=== PATIENT | male | born 1960 | race Caucasian/White ===

== ENCOUNTER 2017-06-26 09:36 | Emergency (ER) | payer SELFPAY ==
[2017-06-26] MEDS ORDERED: TETANUS & DIPHTHERIA TOX,ADULT 0.5 ML VIAL ONE (10:09)
[2017-06-26] MEDS ORDERED: CLINDAMYCIN 600MG/D5W 600 MG/50 ML BAG IV ONE (10:36)
--- NOTE | 2017-06-26 11:23 | EDPHYS ---
Physician Documentation [facility] Name: Mao Ardon Age: 57 yrs Sex: Male : 1960 Arrival Date: 06/26/2017 Time: 09:40 Bed 18 Private MD: ED Physician Mariano Urbina HPI: 06/26 10:43 This 57 yrs old Male presents to ER via Ambulatory with complaints of Hand jr8 Injury. 10:43 The patient or guardian reports pain, a puncture wound, piece of wood , swelling, jr8 tenderness. The complaints affect the over MCP of 2nd digit. Context: The problem was sustained at work. Onset: The symptoms/episode began/occurred acutely. Modifying factors: The symptoms are alleviated by nothing, the symptoms are aggravated by movement. Associated signs and symptoms: Pertinent positives: erythema to puncture site . Severity of symptoms: At their worst the symptoms were moderate, in the emergency department the symptoms are unchanged. The patient has not experienced similar symptoms in the past. The patient has not recently seen a physician. Stated that while at work accidently had piece of wood puncture right hand on palmar aspect near MCP 2nd digit. Since then has had increased swelling and erythema noted along with drainage to puncture site . Historical: - Allergies: 10:05 No Known Allergies; ch - Home Meds: 10:05 None [Active]; ch - PMHx: 10:05 None; ch - PSHx: 10:05 None; ch - Immunization history:: Adult Immunizations up to date, Last tetanus immunization: unknown, Flu vaccine is not up to date. - Social history:: Smoking status: Patient uses tobacco products, smokes one pack cigarettes per day. Patient uses alcohol, weekly. ROS: 10:43 Eyes: Negative for injury, pain, redness, and discharge, ENT: Negative for injury, jr8 pain, and discharge, Neck: Negative for injury, pain, and swelling, Cardiovascular: Negative for chest pain, palpitations, and edema, Respiratory: Negative for shortness of breath, cough, wheezing, and pleuritic chest pain, Abdomen/GI: Negative for abdominal pain, nausea, vomiting, diarrhea, and constipation, Back: Negative for injury and pain, Neuro: Negative for headache, weakness, numbness, tingling, and seizure. 10:43 MS/extremity: Positive for erythema, pain, puncture, swelling, tenderness, warmth, of the right hand. Exam: 10:43 Cardiovascular: Regular rate and rhythm with a normal S1 and S2. No gallops, murmurs, jr8 or rubs. Normal PMI, no JVD. No pulse deficits. Respiratory: Lungs have equal breath sounds bilaterally, clear to auscultation and percussion. No rales, rhonchi or wheezes noted. No increased work of breathing, no retractions or nasal flaring. Skin: Warm, dry with normal turgor. Normal color with no rashes, no lesions, and no evidence of cellulitis. Neuro: Awake and alert, GCS 15, oriented to person, place, time, and situation. Cranial nerves II-XII grossly intact. Motor strength 5/5 in all extremities. Sensory grossly intact. Cerebellar exam normal. Normal gait. 10:43 Musculoskeletal/extremity: Extremities: grossly normal except: noted in the right hand: ROM: intact in all extremities, Circulation is intact in all extremities. Sensation intact. Patient able to make a fist and extend fully with right hand. No pain with flexion or extension of 2nd digit with resistance noted. Erythema over MCP joint with swelling noted. exudate expressed from puncture wound. Tenderness noted to site. No lymphangitis noted . Vital Signs: 10:45 BP 145 / 87; Pulse 81; Resp 16; Temp 98.5; Pulse Ox 99% on R/A; Pain 7/10; ch 11:35 BP 156 / 87; Pulse 78; Resp 15; Temp 98.2(O); Pulse Ox 99% on R/A; Pain 7/10; ch MDM: 09:56 Patient medically screened. jr8 11:20 Data reviewed: vital signs, nurses notes, lab test result(s), radiologic studies, plain jr8 films, and as a result, I will discharge patient. Data interpreted: Pulse oximetry: on room air is 100 %. Interpretation: normal. Counseling: I had a detailed discussion with the patient and/or guardian regarding: the historical points, exam findings, and any diagnostic results supporting the discharge/admit diagnosis, lab results, radiology results, the need for outpatient follow up, a hand specialist, to return to the emergency department if symptoms worsen or persist or if there are any questions or concerns that arise at home. ED course: Detailed discussion with patient about puncture wound and need for close f/u with hand surgeon. If he were to get worse to come straight back to ED for further evaluation and possible surgical intervention. That at this time there is no signs of tenosynovitis but that it could turn into it. Patient understood and will follow instructions . 06/26 10:29 Order name: Wound Culture jr8 06/26 10:07 Order name: XRAY Hand RIGHT 2 View; Complete Time: 11:31 ch Administered Medications: 10:15 Drug: Tetanus-Diphtheria Toxoid Adult 0.5 ml {Bark Tanner: [employer]. Exp: 10/19/2019. Lot #: [id number]. } Route: IM; Site: left deltoid; 11:06 Follow up: Response: No adverse reaction 10:40 Drug: Clindamycin 600 mg Route: IM; Site: left gluteus; 11:06 Follow up: Response: No adverse reaction Disposition: 12:41 Co-signature as Attending Physician, Mariano Urbina MD. rn Disposition: 06/26/17 11:23 Discharged to Home. Impression: Puncture wound without foreign body of hand, Cellulitis of right upper limb. - Condition is Stable. - Discharge Instructions: Puncture Wound, Cellulitis, Btet-id-Xlcn. - Prescriptions for Clindamycin HCl 300 mg Oral Capsule - take 1 capsule by ORAL route every 6 hours for 10 days; 40 capsule. Doxycycline Hyclate 100 mg Oral Tablet - take 1 tablet by ORAL route every 12 hours; 20 tablet. - Medication Reconciliation Form, Thank You Letter, Antibiotic Education, Prescription Opioid Use form. - Follow up: Edouard Smith MD; When: 1 - 2 days; Reason: Wound Recheck, Recheck today's complaints, Continuance of care, Re-evaluation by your physician. - Problem is new. - Symptoms have improved. Signatures: Dispatcher [employer] EDMS Belinda Christiansen RN RN ch Nieto, Roman, MD MD rn Roszak, Josh, PA PA jr8 Corrections: (The following items were deleted from the chart) 10:47 10:43 Stated that while at work accidently had piece of wood puncture right hand on jr8 palmar aspect near MCP 1st digit. Since then has had increased swelling and erythema noted along with drainage to puncture site . jr8
--- NOTE | 2017-06-26 11:23 | ER ---
Nurse's Notes [facility] Name: Mao Ardon Age: 57 yrs Sex: Male : 1960 Arrival Date: 06/26/2017 Time: 09:40 Bed 18 Private MD: Diagnosis: Puncture wound without foreign body of hand;Cellulitis of right upper limb Presentation: 06/26 10:03 Presenting complaint: Patient states: pt c/o pain to R hand since getting some wood in it three days ago while fishing. [place], concerned its infected now. Transition of care: patient was not received from another setting of care. Onset of symptoms was June 23, 2017. Care prior to arrival: None. 10:03 Method Of Arrival: Ambulatory 10:03 Acuity: TAM 4 Triage Assessment: 10:05 General: Appears in no apparent distress. comfortable, Behavior is calm, cooperative, ch appropriate for age. Pain: Complains of pain in palm of right hand and Right first web space Pain currently is 7 out of 10 on a pain scale. Pain began gradually, 2-3 days ago. Cardiovascular: No deficits noted. Respiratory: Airway is patent Respiratory effort is even, unlabored. GI: No signs and/or symptoms were reported involving the gastrointestinal system. Musculoskeletal: Circulation, motion, and sensation intact. Capillary refill < 3 seconds, in bilateral fingers. Swelling present in right hand. Injury Description: Foreign body is located right hand is a splinter. possible splinter R hand was sustained three days. pt has redness and swelling to R hand, oozing, and skin is warm to the touch. area of redness is about quarter sized. Historical: - Allergies: 10:05 No Known Allergies; ch - Home Meds: 10:05 None [Active]; ch - PMHx: 10:05 None; ch - PSHx: 10:05 None; ch - Immunization history:: Adult Immunizations up to date, Last tetanus immunization: unknown, Flu vaccine is not up to date. - Social history:: Smoking status: Patient uses tobacco products, smokes one pack cigarettes per day. Patient uses alcohol, weekly. Screenin:07 Abuse screen: Denies threats or abuse. Denies injuries from another. Nutritional screening: No deficits noted. Tuberculosis screening: No symptoms or risk factors identified. Fall Risk None identified. Assessment: 10:07 Reassessment: Patient appears in no apparent distress at this time. Patient and/or ch family updated on plan of care and expected duration. Pain level reassessed. Patient is alert, oriented x 3, equal unlabored respirations, skin warm/dry/pink. 11:17 Reassessment: Patient appears in no apparent distress at this time. No changes from previously documented assessment. Patient and/or family updated on plan of care and expected duration. Pain level reassessed. Patient is alert, oriented x 3, equal unlabored respirations, skin warm/dry/pink. Vital Signs: 10:45 BP 145 / 87; Pulse 81; Resp 16; Temp 98.5; Pulse Ox 99% on R/A; Pain 7/10; ch 11:35 BP 156 / 87; Pulse 78; Resp 15; Temp 98.2(O); Pulse Ox 99% on R/A; Pain 7/10; ch ED Course: 09:40 Patient arrived in ED. mr 09:56 Kirby Long PA is PHCP. jr8 09:56 Mariano Urbina MD is Attending Physician. jr8 10:01 Belinda Christiansen, CB is Primary Nurse. ch 10:04 Triage completed. ch 10:05 Arm band placed on left wrist. ch 10:07 No apparent distress. Resting quietly. ch 10:07 Patient has correct armband on for positive identification. Bed in low position. Call light in reach. Side rails up X 1. 10:07 No provider procedures requiring assistance completed. ch 10:34 X-ray completed. Portable x-ray completed in exam room. Patient tolerated procedure sw well. 10:36 XRAY Hand RIGHT 2 View In Process Unspecified. EDMS 11:22 Edouard Smith MD is Referral Physician. jr8 15:51 Patient did not have IV access during this emergency room visit. Administered Medications: 10:15 Drug: Tetanus-Diphtheria Toxoid Adult 0.5 ml {Telephone Station Installer: [employer]. Exp: 10/19/2019. Lot #: [id number]. } Route: IM; Site: left deltoid; 11:06 Follow up: Response: No adverse reaction ch 10:40 Drug: Clindamycin 600 mg Route: IM; Site: left gluteus; 11:06 Follow up: Response: No adverse reaction Outcome: 11:23 Discharge ordered by MD. rizo 11:35 Discharged to home ambulatory. 11:35 Condition: stable 11:35 Discharge instructions given to patient, Instructed on discharge instructions, follow up and referral plans. no drinking with medication, medication usage, Demonstrated understanding of instructions, follow-up care, medications, Prescriptions given X 3. 11:41 Patient left the ED. Addendum: 06/29/2017 09:26 Addendum: Culture Results: Positive wound culture. Bacteria is resistant to, has i w intermediate sensitivity, or is not tested against prescribed antibiotics. Report given to LYNDA for further evaluation and then to traffic observer for follow up with patient. Phone call Prescription called-in to pharmacy of choice. called in Bactrim DS 1 tab PO BID X 10 days #20, no refills to [facility]. Signatures: Dispatcher [employer] EDBelinda Jean, RN Marley Crawley ch, Irene, RN RN iw Roszak, Josh, PA PA jr8 Warren, Shannon sw
--- NOTE | 2017-06-26 11:25 | RAD REPORT ---
EXAM DESCRIPTION: RAD - Hand Right 2 View - 06/26/2017 10:36 am CLINICAL HISTORY: Pain and swelling to right hand, possible foreign body. COMPARISON: None. FINDINGS: Soft tissue swelling is seen along the radial aspect of the mid hand. No radiopaque foreig n body seen.
== END 2017-06-26 11:41 | disposition home or self-care (01) ==
LOC: ER 09:36
DX: S61.431A Puncture wound without foreign body of right hand, initial encounter (principal); L03.113 Cellulitis of right upper limb; W45.8XXA Other foreign body or object entering through skin, initial encounter; Y93.9 Activity, unspecified; Y92.9 Unspecified place or not applicable; Y99.0 Civilian activity done for income or pay
CPT/HCPCS: 87070; 87077; 87186; 87205; 90714; 96372; 99283

== ENCOUNTER 2018-01-21 06:45 | Emergency (ER) | payer SELFPAY ==
[2018-01-21] MEDS ORDERED: ONDANSETRON 4 MG/2 ML VIAL ONE (07:57)
[2018-01-21] MEDS ORDERED: MORPHINE 4 MG/ML SYR ONE (07:57)
[2018-01-21 08:02] LABS: Absolute Lymphocytes (CBC) 1.2 K/uL (0.7-4.9); Absolute Monocytes 0.5 K/uL (0.1-1.3); Absolute Neutrophil 5.6 K/uL (1.8-8.0); Basophils % 0.4 % (0-1.3); Eosinophils % 1.1 % (0-4.4); Hematocrit 51.9 % (39.6-49.0); MCH 31.8 pg (27.0-35.0); MCV 91.7 fL (80-100); MPV 9.6 fL (7.6-11.3); Monocytes % 6.7 % (3.3-12.3); RBC Red Blood Cell Count 5.66 M/uL (4.33-5.43)
[2018-01-21 08:23] LABS: BUN Blood Urea Nitrogen 13 mg/dL (7-18); Bicarbonate 26 mmol/L (21-32); Glucose Level 103 mg/dL (74-106); Potassium 4.2 mmol/L (3.5-5.1); Sodium Level 139 mmol/L (136-145)
--- NOTE | 2018-01-21 09:15 | RAD REPORT ---
EXAM DESCRIPTION: CT - Abdomen Pelvis W Contrast - 01/21/2018 8:49 am CLINICAL HISTORY: Abdominal pain/generalized abdominal pain COMPARISON: 2017 TECHNIQUE: Computed axial tomography of the abdomen pelvis was obtained. 100 cc Isovue-300 was admin istered intravenously. Oral contrast was not requested which limits evaluation of bowel. All CT scans are performed using dose optimization technique as appropriate and may include automated exposure control or mA/KV adjustment according to patient size. FINDINGS: Fatty infiltration liver The Spleen, pancreas, adrenal and kidneys appear unremarkable. Small left anterolateral abdominal wall lipoma There is no evidence of diverticulitis. Large ventral hernia contains nondilated small bowel within the mid and lower abdomen. Mild stranding within the mesentey is present. The neck measures 6 centimeters Small umbilical hernia contains loop of nondilated small bowel. Small inguinal hernias contain fat Gallbladder is distended Spondylolysis involves L5 5 IMPRESSION: Large ventral hernia contains nondilated small bowel within the mid and lower abdomen. M ild stranding within the mesentey likely indicates inflammation Small umbilical hernia containing loop of small bowel Gallbladder distention.
--- NOTE | 2018-01-21 10:32 | ER ---
Nurse's Notes [facility] Name: Mao Ardon Age: 58 yrs Sex: Male : 1960 Arrival Date: 01/21/2018 Time: 06:46 Bed 19 Private MD: Diagnosis: Ventral hernia Presentation: 01/21 06:48 Presenting complaint: EMS states: Pt has had a hernia for 2 years. was having severe jb4 abdominal pain on the scene. Transition of care: patient was not received from another setting of care. Onset of symptoms was January 21, 2018. Risk Assessment: Do you want to hurt yourself or someone else? Patient reports no desire to harm self or others. Initial Sepsis Screen: Does the patient meet any 2 criteria? No. Patient's initial sepsis screen is negative. Does the patient have a suspected source of infection? No. Patient's initial sepsis screen is negative. Care prior to arrival: None. 06:48 Method Of Arrival: EMS: [facility] jb4 06:48 Acuity: TAM 3 jb4 Triage Assessment: 06:53 General: Appears in no apparent distress. uncomfortable, Behavior is calm, cooperative, jb4 appropriate for age. Pain: Complains of pain in abdomen Pain does not radiate. Pain currently is 5 out of 10 on a pain scale. at worst was 10 out of 10 on a pain scale. EENT: No signs and/or symptoms were reported regarding the EENT system. Neuro: Level of Consciousness is awake, alert, obeys commands, Oriented to person, place, time, situation. Cardiovascular: Patient's skin is warm and dry. Respiratory: Airway is patent Respiratory effort is even, unlabored, Respiratory pattern is regular, symmetrical. GI: Abdomen is non-distended, obese, hernia noted to right abdomen. : No signs and/or symptoms were reported regarding the genitourinary system. Derm: Skin is intact, Skin is pink, warm \T\ dry. Musculoskeletal: Circulation, motion, and sensation intact. Historical: - Allergies: 06:53 No Known Allergies; jb4 - Home Meds: 06:53 None [Active]; jb4 - PMHx: 06:53 Hernia; jb4 - PSHx: 06:53 foot surgery; left thumb surgery; jb4 - Immunization history:: Adult Immunizations up to date, Flu vaccine is not up to date. - Social history:: Smoking status: Patient uses tobacco products, smokes one pack cigarettes per day. Patient uses alcohol, claims drinking about a 6 pack/day. - Ebola Screening: : No symptoms or risks identified at this time. Screenin:56 Abuse screen: Denies threats or abuse. Nutritional screening: No deficits noted. jb4 Tuberculosis screening: No symptoms or risk factors identified. Fall Risk None identified. Assessment: 06:56 General: see triage assessment.. jb4 07:30 Reassessment: Patient appears in no apparent distress at this time. Patient and/or jl7 family updated on plan of care and expected duration. Pain level reassessed. Patient is alert, oriented x 3, equal unlabored respirations, skin warm/dry/pink. Pain level rated 4/10 Patient states symptoms have improved. 09:13 Reassessment: Patient appears in no apparent distress at this time. No changes from [facility] previously documented assessment. Patient and/or family updated on plan of care and expected duration. Pain level reassessed. Patient is alert, oriented x 3, equal unlabored respirations, skin warm/dry/pink. 10:03 Reassessment: Patient appears in no apparent distress at this time. Patient and/or jl7 family updated on plan of care and expected duration. Pain level reassessed. Patient is alert, oriented x 3, equal unlabored respirations, skin warm/dry/pink. Vital Signs: 06:53 BP 150 / 100; Pulse 57; Resp 20; Temp 97.9; Pulse Ox 97% on R/A; Weight 117.93 kg (R); jb4 Height 6 ft. 0 in. (182.88 cm) (R); Pain 5/10; 08:09 BP 142 / 84; Pulse 61; Resp 16 S; Pulse Ox 96% on R/A; Pain 4/10; jl7 09:12 BP 136 / 77; Pulse 57; Resp 16 S; Pulse Ox 96% on R/A; jl7 10:03 BP 136 / 77; Pulse 59; Resp 16 S; Pulse Ox 94% on R/A; jl7 06:53 Body Mass Index 35.26 (117.93 kg, 182.88 cm) 4 ED Course: 06:46 Patient arrived in ED. al2 06:46 Laney Dunham FNP-C is PHCP. kb 06:46 Eliazar Franco MD is Attending Physician. kb 06:48 Rodney Akers, RN is Primary Nurse. jb4 06:50 Triage completed. jb4 06:53 Arm band placed on right wrist. jb4 06:56 Patient has correct armband on for positive identification. Bed in low position. Call jb4 light in reach. Side rails up X 1. Pulse ox on. NIBP on. 07:40 Inserted saline lock: 20 gauge in right forearm, using aseptic technique. Blood bp collected. 08:47 CT completed. Patient tolerated procedure well. Patient moved to OR via wheelchair. sj Patient moved back from OR. 10:15 Harpreet Szymanski MD is Referral Physician. kb 10:21 No provider procedures requiring assistance completed. IV discontinued, intact, jl7 bleeding controlled, No redness/swelling at site. Pressure dressing applied. Administered Medications: 07:06 Not Given (Other Intervention Used): [place] 10 mg-325 mg 1 tabs PO once kb 07:50 Drug: Zofran 4 mg Route: IVP; Site: right antecubital; jl7 08:09 Follow up: Response: No adverse reaction jl7 07:52 Drug: morphine 4 mg Route: IVP; Site: right antecubital; jl7 08:09 Follow up: Response: Pain is decreased jl7 Outcome: 10:15 Discharge ordered by . kb 10:21 Discharged to home ambulatory. jl7 10:21 Condition: stable 10:21 Discharge instructions given to patient, family, Instructed on discharge instructions, follow up and referral plans. Demonstrated understanding of instructions, follow-up care. 10:22 Patient left the ED. jl7 Signatures: Laney Dunahm, STRAW HAT BRIM CUTTER OPERATOR-C STRAW HAT BRIM CUTTER OPERATOR-[place]aven Guthrie James, RN RN jb4 David Rousseau RN RN jl7 Arvind Carney, RN RN Christy Miller
--- NOTE | 2018-01-21 10:32 | EDPHYS ---
Physician Documentation [facility] Name: Mao Ardon Age: 58 yrs Sex: Male : 1960 Arrival Date: 01/21/2018 Time: 06:46 Bed 19 Private MD: ED Physician Eliazar Franco HPI: 01/21 06:47 This 58 yrs old Male presents to ER via Unassigned with complaints of kb abdominal pain. 06:47 The patient presents with abdominal pain in the periumbilical area. Onset: The kb symptoms/episode began/occurred at 04:00. The symptoms do not radiate. Associated signs and symptoms: Pertinent positives: nausea and vomiting, hernia. The symptoms are described as constant, sharp. Modifying factors: The symptoms are alleviated by nothing, the symptoms are aggravated by movement, pressure. Severity of pain: At its worst the pain was moderate in the emergency department the pain has improved. The patient has experienced similar episodes in the past. The patient has not recently seen a physician. Pt reports he has had a large hernia for 2 years, normally has to wear a couple of abd binders to "keep it in." States he woke up with severe pain at 0400 and the hernia was out again and hard. 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 . Historical: - Allergies: 06:53 No Known Allergies; jb4 - Home Meds: 06:53 None [Active]; jb4 - PMHx: 06:53 Hernia; jb4 - PSHx: 06:53 foot surgery; left thumb surgery; jb4 - Immunization history:: Adult Immunizations up to date, Flu vaccine is not up to date. - Social history:: Smoking status: Patient uses tobacco products, smokes one pack cigarettes per day. Patient uses alcohol, claims drinking about a 6 pack/day. - Ebola Screening: : No symptoms or risks identified at this time. ROS: 07:06 Constitutional: Negative for fever, chills, and weight loss, Cardiovascular: Negative kb for chest pain, palpitations, and edema, Respiratory: Negative for shortness of breath, cough, wheezing, and pleuritic chest pain, Back: Negative for injury and pain, : Negative for injury, bleeding, discharge, and swelling, MS/Extremity: Negative for injury and deformity, Skin: Negative for injury, rash, and discoloration, Neuro: Negative for headache, weakness, numbness, tingling, and seizure. 07:06 Abdomen/GI: Positive for abdominal pain, nausea and vomiting. Exam: 07:06 Constitutional: This is a well developed, well nourished patient who is awake, alert, kb and in no acute distress. Head/Face: Normocephalic, atraumatic. Chest/axilla: Normal chest wall appearance and motion. Nontender with no deformity. No lesions are appreciated. Cardiovascular: Regular rate and rhythm with a normal S1 and S2. No gallops, murmurs, or rubs. Normal PMI, no JVD. No pulse deficits. Respiratory: Lungs have equal breath sounds bilaterally, clear to auscultation and percussion. No rales, rhonchi or wheezes noted. No increased work of breathing, no retractions or nasal flaring. Skin: Warm, dry with normal turgor. Normal color with no rashes, no lesions, and no evidence of cellulitis. MS/ Extremity: Pulses equal, no cyanosis. Neurovascular intact. Full, normal range of motion. Neuro: Awake and alert, GCS 15, oriented to person, place, time, and situation. Cranial nerves II-XII grossly intact. Motor strength 5/5 in all extremities. Sensory grossly intact. Cerebellar exam normal. Normal gait. 07:06 Abdomen/GI: Inspection: large hernia noted , Bowel sounds: normal, in all quadrants, Palpation: abdomen is soft and non-tender, in all quadrants, Hernia: noted in the paraumbilical area, incarceration, is not appreciated, tenderness, that is moderate. Vital Signs: 06:53 BP 150 / 100; Pulse 57; Resp 20; Temp 97.9; Pulse Ox 97% on R/A; Weight 117.93 kg (R); jb4 Height 6 ft. 0 in. (182.88 cm) (R); Pain 5/10; 08:09 BP 142 / 84; Pulse 61; Resp 16 S; Pulse Ox 96% on R/A; Pain 4/10; jl7 09:12 BP 136 / 77; Pulse 57; Resp 16 S; Pulse Ox 96% on R/A; jl7 10:03 BP 136 / 77; Pulse 59; Resp 16 S; Pulse Ox 94% on R/A; jl7 06:53 Body Mass Index 35.26 (117.93 kg, 182.88 cm) jb4 MDM: 06:50 Patient medically screened. [facility] 06:55 Data reviewed: vital signs, nurses notes. kb 06:55 ED course: hernia reduced with constant pressure, abd binder placed. Pt reports pain is kb improved, now just sore. 07:08 Data interpreted: Pulse oximetry: on room air is 97 %. Interpretation: normal. kb 10:08 Physician consultation: Harpreet Szymanski MD was called at 10:08, message left. kb 10:14 Counseling: I had a detailed discussion with the patient and/or guardian regarding: the kb historical points, exam findings, and any diagnostic results supporting the discharge/admit diagnosis, lab results, radiology results, the need for outpatient follow up, a general surgeon, to return to the emergency department if symptoms worsen or persist or if there are any questions or concerns that arise at home. Physician consultation: Harpreet Szymanski MD was contacted at 10:14, regarding consult, patient's condition, and will see patient in office. 01/21 07:06 Order name: Basic Metabolic Panel 01/21 07:06 Order name: CBC with Diff 01/21 07:42 Order name: CT Abd/Pelvis - W/Contrast 01/21 08:03 Order name: CBC with Automated Diff; Complete Time: 08:17 EDMS 01/21 08:23 Order name: Basic Metabolic Panel; Complete Time: 08:24 EDMS 01/21 07:06 Order name: IV Saline Lock; Complete Time: 07:40 kb 01/21 07:06 Order name: Labs collected and sent; Complete Time: 07:40 kb Administered Medications: 07:06 Not Given (Other Intervention Used): Bunker 10 mg-325 mg 1 tabs PO once kb 07:50 Drug: Zofran 4 mg Route: IVP; Site: right antecubital; jl7 08:09 Follow up: Response: No adverse reaction jl7 07:52 Drug: morphine 4 mg Route: IVP; Site: right antecubital; jl7 08:09 Follow up: Response: Pain is decreased jl7 Disposition: 11:28 Co-signature as Attending Physician, Eliazar Franco MD I agree with the assessment and [facility] plan of care. Disposition: 01/21/18 10:15 Discharged to Home. Impression: Ventral hernia. - Condition is Stable. - Discharge Instructions: Hernia, Adult, [id number], Ventral Hernia. - Medication Reconciliation Form, Thank You Letter, Antibiotic Education, Prescription Opioid Use form. - Follow up: Emergency Department; When: As needed; Reason: Worsening of condition. Follow up: Harpreet Szymanski MD; When: Today; Reason: Recheck today's complaints. Signatures: Dispatcher [employer] EDMS RolyLaney, FULL STACK DEVELOPER-C FULL STACK DEVELOPER-Ckb Eliazar Franco MD MD cha Bryson, James, RN RN jb4 David Rousseau RN RN jl7 Corrections: (The following items were deleted from the chart) 10:22 10:15 01/21/2018 10:15 Discharged to Home. Impression: Ventral hernia. Condition is jl7 Stable. Forms are Medication Reconciliation Form, Thank You Letter, Antibiotic Education, Prescription Opioid Use. Follow up: Emergency Department; When: As needed; Reason: Worsening of condition. Follow up: Harpreet Szymanski; When: Today; Reason: Recheck today's complaints. kb
== END 2018-01-21 10:22 | disposition home or self-care (01) ==
LOC: ER 06:45
DX: K43.9 Ventral hernia without obstruction or gangrene (principal); F17.210 Nicotine dependence, cigarettes, uncomplicated
CPT/HCPCS: 36415; 74177; 80048; 85025; 96374; 96375; 99284; J2405; Q9967

== ENCOUNTER 2018-10-15 14:43 | Emergency (ER) | payer SELFPAY ==
--- OUTSIDE RECORDS SUMMARY | 2018-10-15 14:47 | XMS REPORT ---
:1960 Demographics Address [address] [place] [address] Preferred Language Unknown Marital Status Unknown Jew Affiliation Unknown Race Unknown Additional Race(s) Unavailable Ethnic Group Unknown Author Organization [facility] Address [address] [place] [address] Dr. Prince [address] [place] [id number] Care Team Providers Name Role Phone Unavailable Unavailable Unavailable Problems This patient has no known problems. Allergies, Adverse Reactions, Alerts This patient has no known allergies or adverse reactions. Medications This patient has no known medications.
[2018-10-15] MEDS ORDERED: LIDOCAINE 1% MPF 5 ML VIAL ONE (15:30)
--- NOTE | 2018-10-15 15:35 | EDPHYS ---
Physician Documentation [facility] Name: Mao Ardon Age: 58 yrs Sex: Male : 1960 Arrival Date: 10/15/2018 Time: 14:44 Bed 20 Private MD: None, None ED Physician Mariano Urbina HPI: 10/15 15:15 This 58 yrs old Male presents to ER via Ambulatory with complaints of Finger kb Injury, Laceration To Hand. 15:15 The patient has a laceration related to: doing carpentry, from a power saw, occurred at home, and there are no complicating factors. The injury was accidental. The laceration(s) is(are) located on the dorsal aspect of middle phalanx of right index finger. Onset: The symptoms/episode began/occurred just prior to arrival. Associated signs and symptoms: The patient has no apparent associated signs or symptoms. The patient has not experienced similar symptoms in the past. The patient has not recently seen a physician. Pt reports he cut his finger with a saw while cutting cabinet trim approx 20 min ago. Full ROM of finger at every joint. Cap refill less than 2 seconds. Bleeding controlled. . Historical: - Allergies: 14:52 Codeine; hj - PMHx: 14:52 Hernia; hj - PSHx: 14:52 foot surgery; left thumb surgery; hj - Immunization history:: Adult Immunizations unknown, Last tetanus immunization: up to date. - Social history:: Smoking status: unknown. - Ebola Screening: : No symptoms or risks identified at this time. ROS: 15:11 Constitutional: Negative for fever, chills, and weight loss, ENT: Negative for injury, kb pain, and discharge, Neck: Negative for injury, pain, and swelling, Cardiovascular: Negative for chest pain, palpitations, and edema, Respiratory: Negative for shortness of breath, cough, wheezing, and pleuritic chest pain, Abdomen/GI: Negative for abdominal pain, nausea, vomiting, diarrhea, and constipation, Back: Negative for injury and pain, MS/Extremity: Negative for injury and deformity, Neuro: Negative for headache, weakness, numbness, tingling, and seizure. 15:11 Skin: Positive for laceration(s), of the dorsal aspect of middle phalanx of right index finger. Exam: 15:11 Constitutional: This is a well developed, well nourished patient who is awake, alert, kb and in no acute distress. Head/Face: Normocephalic, atraumatic. Chest/axilla: Normal chest wall appearance and motion. Nontender with no deformity. No lesions are appreciated. Cardiovascular: Regular rate and rhythm with a normal S1 and S2. No gallops, murmurs, or rubs. Normal PMI, no JVD. No pulse deficits. Respiratory: Lungs have equal breath sounds bilaterally, clear to auscultation and percussion. No rales, rhonchi or wheezes noted. No increased work of breathing, no retractions or nasal flaring. Abdomen/GI: Soft, non-tender, with normal bowel sounds. No distension or tympany. No guarding or rebound. No evidence of tenderness throughout. MS/ Extremity: Pulses equal, no cyanosis. Neurovascular intact. Full, normal range of motion. Neuro: Awake and alert, GCS 15, oriented to person, place, time, and situation. Cranial nerves II-XII grossly intact. Motor strength 5/5 in all extremities. Sensory grossly intact. Cerebellar exam normal. Normal gait. 15:11 Skin: injury, laceration(s), the wound is approximately 2.5 cm(s), of the dorsal aspect of middle phalanx of right index finger, that can be described as clean, no foreign body, linear, without bleeding. Vital Signs: 14:52 BP 136 / 83; Pulse 82; Resp 18; Temp 98.2(TE); Pulse Ox 95% on R/A; Weight 117.93 kg; hj Height 6 ft. 1 in. (185.42 cm); 14:52 Body Mass Index 34.30 (117.93 kg, 185.42 cm) hj Laceration: 15:33 Wound Repair of 2.5cm ( 1.0in ) subcutaneous laceration to dorsal aspect of middle kb phalanx of right index finger. Linear shaped.. Distal neuro/vascular/tendon intact. Anesthesia: Wound infiltrated with 2 mls of 1% lidocaine. Wound prep: Extensive cleansing with betadine by me, Wound irrigation with saline by wi. Skin closed with 5 4-0 Prolene using interrupted sutures and sterile technique. Dressed with Neosporin, tube gauze. Patient tolerated well. MDM: 14:58 Patient medically screened. kb 15:12 Data reviewed: vital signs, nurses notes. Data interpreted: Pulse oximetry: on room air kb is 95 %. Interpretation: normal. 15:33 Counseling: I had a detailed discussion with the patient and/or guardian regarding: the kb historical points, exam findings, and any diagnostic results supporting the discharge/admit diagnosis, the need for outpatient follow up, a family practitioner, to return to the emergency department if symptoms worsen or persist or if there are any questions or concerns that arise at home. ED course: Pt does not want x-ray to rule out fracture. States "Nah, that's ok. I would feel it if it was broke. I don't think it is.". 15:35 Refusal of service: The patient/guardian displays adequate decision making capability kb and despite a detailed discussion of alternatives, benefits, risks, and consequences refuses: all X-rays. 10/15 15:03 Order name: Prolene, Sutures; Complete Time: 15:29 kb 10/15 15:03 Order name: Dressing - Wound; Complete Time: 15:29 kb 10/15 15:03 Order name: Gloves, Sterile; Complete Time: 15:29 kb 10/15 15:03 Order name: Setup Suture Tray; Complete Time: 15:29 kb Administered Medications: 15:52 Drug: Lidocaine (1 %) 1 vials Volume: 5 ml; Route: Infiltration; ph 15:52 Follow up: Response: No adverse reaction ph Disposition: 18:21 Co-signature as Attending Physician, Mariano Urbina MD. rn Disposition: 10/15/18 15:34 Discharged to Home. Impression: Laceration without foreign body of right index finger without damage to nail. - Condition is Stable. - Discharge Instructions: Laceration Care, Adult, [id number]. - Medication Reconciliation Form, Thank You Letter, Antibiotic Education, Prescription Opioid Use form. - Follow up: Emergency Department; When: As needed; Reason: Worsening of condition. Follow up: Private Physician; When: 2 - 3 days; Reason: Recheck today's complaints, Continuance of care, Re-evaluation by your physician. Signatures: Laney Dunham, ORE MINER BLASTING-C ORE MINER BLASTING-Ckb Urbina, Mariano, MD MD rn Espinal, Shona, RN RN ph Calvin, Harpreet, RN RN hj Corrections: (The following items were deleted from the chart) 15:35 15:33 ED course: Pt does not want x-ray to rule out fracture. . kb kb 15:53 15:34 10/15/2018 15:34 Discharged to Home. Impression: Laceration without foreign body ph of right index finger without damage to nail. Condition is Stable. Forms are Medication Reconciliation Form, Thank You Letter, Antibiotic Education, Prescription Opioid Use. Follow up: Emergency Department; When: As needed; Reason: Worsening of condition. Follow up: Private Physician; When: 2 - 3 days; Reason: Recheck today's complaints, Continuance of care, Re-evaluation by your physician. kb
--- NOTE | 2018-10-15 15:35 | ER ---
Nurse's Notes [facility] Name: Mao Ardon Age: 58 yrs Sex: Male : 1960 Arrival Date: 10/15/2018 Time: 14:44 Bed 20 Private MD: None, None Diagnosis: Laceration without foreign body of right index finger without damage to nail Presentation: 10/15 14:50 Presenting complaint: Patient states: i cut and trimmed for cabinets and accidentally hj cut my R index finger with a saw and it happened 30 mins ago;. Transition of care: patient was not received from another setting of care. Onset of symptoms was October 15, 2018. Risk Assessment: Do you want to hurt yourself or someone else? Patient reports no desire to harm self or others. Initial Sepsis Screen: Does the patient meet any 2 criteria? No. Patient's initial sepsis screen is negative. Does the patient have a suspected source of infection? No. Patient's initial sepsis screen is negative. Care prior to arrival: None. 14:50 Method Of Arrival: Ambulatory 14:50 Acuity: TAM 4 hj Historical: - Allergies: 14:52 Codeine; hj - PMHx: 14:52 Hernia; hj - PSHx: 14:52 foot surgery; left thumb surgery; hj - Immunization history:: Adult Immunizations unknown, Last tetanus immunization: up to date. - Social history:: Smoking status: unknown. - Ebola Screening: : No symptoms or risks identified at this time. Screenin:28 Abuse screen: Denies threats or abuse. Denies injuries from another. Nutritional ph screening: No deficits noted. Tuberculosis screening: No symptoms or risk factors identified. Fall Risk None identified. Assessment: 15:27 General: Appears in no apparent distress. comfortable, Behavior is calm, cooperative, ph appropriate for age. Pain: Complains of pain in dorsal aspect of middle phalanx of right index finger. Neuro: Level of Consciousness is awake, alert, obeys commands, Oriented to person, place, time, situation. Cardiovascular: Capillary refill < 3 seconds in bilateral fingers Patient's skin is warm and dry. Respiratory: Airway is patent Respiratory effort is even, unlabored, Respiratory pattern is regular, symmetrical. Derm: Skin is healthy with good turgor, Skin is pink, warm \T\ dry. Musculoskeletal: Circulation, motion, and sensation intact. Range of motion: intact in all extremities. Injury Description: Laceration sustained to dorsal aspect of middle phalanx of right index finger is clean, superficial, 0.5 to 2.5 cm long, not bleeding, was sustained 30-60 minutes ago. 15:52 Reassessment: Patient appears in no apparent distress at this time. Patient and/or ph family updated on plan of care and expected duration. Pain level reassessed. Patient is alert, oriented x 3, equal unlabored respirations, skin warm/dry/pink. Pt instructed to have sutures removed in 10-14 days and d/c home. Vital Signs: 14:52 BP 136 / 83; Pulse 82; Resp 18; Temp 98.2(TE); Pulse Ox 95% on R/A; Weight 117.93 kg; hj Height 6 ft. 1 in. (185.42 cm); 14:52 Body Mass Index 34.30 (117.93 kg, 185.42 cm) hj ED Course: 14:44 Patient arrived in ED. dp 14:44 None, None is Private Physician. dp 14:52 Triage completed. hj 14:52 Arm band placed on left wrist. hj 14:54 Shona Espinal RN is Primary Nurse. ph 14:57 Laney Dunham FNP-C is [facility]. kb 14:57 Mariano Urbina MD is Attending Physician. kb 15:28 Assist provider with laceration repair on dorsal aspect of middle phalanx of right ph index finger that was 2.5 cm. or less using sutures. Set up tray. Performed by Laney FALK Patient tolerated well. Patient did not have IV access during this emergency room visit. 15:29 Patient has correct armband on for positive identification. Call light in reach. Side ph rails up X 1. Administered Medications: 15:52 Drug: Lidocaine (1 %) 1 vials Volume: 5 ml; Route: Infiltration; ph 15:52 Follow up: Response: No adverse reaction ph Outcome: 15:34 Discharge ordered by . kb 15:53 Discharged to home ambulatory. ph 15:53 Condition: good 15:53 Discharge instructions given to patient, Instructed on discharge instructions, follow up and referral plans. wound care, Demonstrated understanding of instructions, follow-up care, wound care. 15:53 Patient left the ED. ph Signatures: Laney Dunham, Shona Meza, RN RN ph Harpreet Simpson, RN RN hj Kevin Shultz
== END 2018-10-15 15:53 | disposition home or self-care (01) ==
LOC: ER 14:43
PROC: 0JQJ0ZZ Repair Right Hand Subcutaneous Tissue and Fascia, Open Approach (ICD-10-PCS; principal; 2018-10-15)
DX: S61.210A Laceration without foreign body of right index finger without damage to nail, initial encounter (principal); W29.8XXA Contact with other powered hand tools and household machinery, initial encounter; Y93.89 Activity, other specified; Z88.5 Allergy status to narcotic agent
CPT/HCPCS: 99283

== ENCOUNTER 2020-06-12 18:22 | Emergency (ER) | payer OTHER, SELFPAY ==
--- OUTSIDE RECORDS SUMMARY | 2020-06-12 18:24 | XMS REPORT | Continuity of Care Document ---
:1960 Author Organization [facility] t Address [address] [place] [address] Care Team Providers Name Role Phone Mike LOWRY Attending Clinician Doctor Unassigned, Name Attending Clinician Unavailable Problems This patient has no known problems. Allergies, Adverse Reactions, Alerts This patient has no known allergies or adverse reactions. Medications This patient has no known medications. Procedures This patient has no known procedures. Encounters Start End Encounter Admission Attending Care Care Encounter Source Date/Time Date/Time Type Type Clinicians Facility Department ID 2019-05-07 2019-05-07 Emergency Mike [facility] [id number] 06:35:54 08:11:00 Landon Calhoun [id number] [place] [id number] [place] [id number] 2019-05-07 2019-05-07 Orders Doctor [facility] [id number] 00:00:00 00:00:00 Only UnassALEX diaz [id number] [place] [facility] [id number] Results This patient has no known results.
[2020-06-12] MEDS ORDERED: MORPHINE 4 MG/ML SYR ONE ×2 (19:07→21:37)
[2020-06-12] MEDS ORDERED: BUPIVACAINE 0.5% PF 10 ML VIAL ONE (19:07)
[2020-06-12] MEDS ORDERED: ONDANSETRON 4 MG/2 ML VIAL ONE (19:07)
[2020-06-12] MEDS ORDERED: LIDOCAINE 1% 20 ML MDV ONE (19:08)
[2020-06-12] MEDS ORDERED: PIPER/TAZO/NS 3.375gm 3.375 GM/100 ML BAG ONE (19:08)
--- NOTE | 2020-06-12 20:03 | RAD REPORT ---
EXAM DESCRIPTION: RAD -Hand Left 3 View - 06/12/2020 7:30 pm CLINICAL HISTORY: Left hand pain status dog bite FINDINGS: No fracture or dislocation is seen. A radiopaque foreign body is not seen
--- NOTE | 2020-06-12 20:14 | ER ---
Nurse's Notes [facility] Name: Mao Ardon Age: 60 yrs Sex: Male : 1960 Arrival Date: 06/12/2020 Time: 18:22 Bed 5 Private MD: Diagnosis: Nondisplaced fracture of proximal phalanx of left thumb-open;Bitten by dog;Laceration without foreign body of right thumb without damage to nail-from dog bite Presentation: 06/12 18:32 Chief complaint: Patient states: Broke up a dog fight between two large dogs that live ll1 at his house right now, happened 10 min HORSESHOER. Deep laceration to both sides of L hand (thumb area). 2 puncture wounds to R hand fingers. Abrasions R FA. Bleeding controlled. Coronavirus screen: Client denies travel out of the [place] in the last 14 days. At this time, the client does not indicate any symptoms associated with coronavirus-19. Ebola Screen: Patient denies travel to an Ebola-affected area in the 21 days before illness onset. Initial Sepsis Screen: Does the patient meet any 2 criteria? HR > 90 bpm. No. Patient's initial sepsis screen is negative. Does the patient have a suspected source of infection? Yes: Skin breakdown/wound. Risk Assessment: Do you want to hurt yourself or someone else? Patient reports no desire to harm self or others. Onset of symptoms was June 12, 2020. 18:32 Method Of Arrival: Ambulatory ll1 18:32 Acuity: TAM 3 ll1 Triage Assessment: 19:20 Bite description: bite sustained to dorsal aspect of proximal phalanx of left thumb, lp1 palm of left hand and Left first web space is full thickness, from animal, by a dog, animal information: vaccination(s) is unknown. Historical: - Allergies: 18:32 Codeine; ll1 - PMHx: 18:32 Hernia; ll1 - PSHx: 18:32 foot surgery; left thumb surgery; Hernia repair; ll1 - Immunization history:: Last tetanus immunization: up to date Flu vaccine is not up to date. - Social history:: Smoking status: Patient reports the use of cigarette tobacco products, smokes one pack cigarettes per day. Screenin:53 Abuse screen: Denies threats or abuse. Denies injuries from another. Nutritional hb screening: No deficits noted. Tuberculosis screening: No symptoms or risk factors identified. Fall Risk None identified. Assessment: 18:54 General: Appears in no apparent distress. uncomfortable, Behavior is calm, cooperative. hb Pain: Pain currently is 6 out of 10 on a pain scale. Neuro: Level of Consciousness is awake, alert, obeys commands, Oriented to person, place, time, situation. Cardiovascular: Patient's skin is warm and dry. Respiratory: Respiratory effort is even, unlabored, Respiratory pattern is regular, symmetrical. GI: No signs and/or symptoms were reported involving the gastrointestinal system. : No signs and/or symptoms were reported regarding the genitourinary system. EENT: No signs and/or symptoms were reported regarding the EENT system. Derm: Skin is pink, warm \T\ dry. Musculoskeletal: No signs and/or symptoms reported regarding the musculoskeletal system. Injury Description: Bite sustained to right hand caused by a dog, is multiple puncture wounds to left hand and fingers, lacerations to both sides of hand. 19:20 General: Appears in no apparent distress. Behavior is appropriate for age. Pain: lp1 Complains of pain in left hand. Neuro: No deficits noted. Cardiovascular: Patient's skin is warm and dry. Respiratory: Respiratory effort is even, unlabored. GI: Abdomen is obese. Derm: Skin with poor turgor Skin is dry, Wound noted dorsal aspect of proximal phalanx of right thumb, dorsal aspect of proximal phalanx of left thumb, palm of left hand and Left first web space Wound is Jagged laceration noted to left dorsal and palmar aspects of hand, laceration to right thumb; Reports numbness to left thumb. 19:35 Reassessment: Patient and Provider discussing plan of care and need for transfer. lp1 20:30 Reassessment: Wounds cleansed with Betadine and dressed with non-adherent pads and lp1 kerlix. 20:44 Reassessment: Report given to CB Solorzano at [facility] for patient transfer to ER. lp1 21:10 Reassessment: [facility] at bedside for transfer. lp1 21:20 Reassessment: Patient reports pain to left hand returning; Verbal order for Morphine lp1 4mg IV now; patient ambulated to bathroom independently. Vital Signs: 18:32 BP 146 / 86; Pulse 95; Resp 18; Temp 97.4; Pulse Ox 96% on R/A; Weight 136.08 kg; ll1 Height 6 ft. 0 in. (182.88 cm); Pain 6/10; 20:15 BP 122 / 82; Pulse 80; Resp 20; Temp 98.4(O); Pulse Ox 94% on R/A; Pain 6/10; lp1 18:32 Body Mass Index 40.69 (136.08 kg, 182.88 cm) 1 ED Course: 18:22 Patient arrived in ED. mr 18:30 Eliazar Coleman PA is PHCP. cp 18:30 Mariano Urbina MD is Attending Physician. cp 18:32 Arm band placed on Patient placed in an exam room, on a stretcher. ll1 18:36 Triage completed. 1 18:44 [place] [employer] contacted, given dog bite information. Will contact patient. ll1 18:47 Inserted saline lock: 20 gauge in right forearm, using aseptic technique. iw 18:49 [place] [employer] called and asked to please notify the patient if he would eb like to file a report he needs to stop at the police department when he'd done here. 19:06 Alisha Shultz, RN is Primary Nurse. lp1 19:15 Wound care: to laceration located on dorsal aspect of proximal phalanx of right thumb, lp1 dorsal aspect of proximal phalanx of left thumb, palm of left hand and Left first web space was irrigated with normal saline. 19:30 XRAY Hand LEFT 3 View In Process Unspecified. EDMS 19:30 Patient has correct armband on for positive identification. lp1 19:54 initiated a transfer with Gwen from [facility]. mw2 20:06 administrative approval given by Gwen Quinn/ patient has been accepted to [address] ER/ Dr. Maddox has accepted the patient in transfer/ report to be called to [phone]. 20:35 XRAY Hand RIGHT 3 View In Process Unspecified. EDMS 20:36 IV is patent, with good blood return. lp1 20:49 No provider procedures requiring assistance completed. lp1 21:24 Patient transferred, IV remains in place. lp1 Administered Medications: 19:04 Drug: Zosyn 3.375 grams Route: IVPB; Infused Over: 60 mins; Site: right forearm; iw 20:10 Follow up: IV Status: Completed infusion; IV Intake: 100ml lp1 19:04 Drug: morphine 4 mg Route: IVP; Site: right forearm; iw 19:25 Follow up: Response: Pain is decreased lp1 19:04 Drug: Zofran (Ondansetron) 4 mg Route: IVP; Site: right forearm; iw 19:25 Follow up: Response: No adverse reaction lp1 19:05 Not Given (Pt had vaccine 1 year ago, refused): Tetanus-Diphtheria Toxoid Adult 0.5 ml hb IM once 20:36 Not Given (Not sutures done): Marcaine (bupivacaine) (0.5 %) 10 ml 10 ml Infiltration lp1 once 20:37 Not Given (No sutures performed): Lidocaine (1 %) 10 ml 20 ml Infiltration once; to lp1 bedside 21:20 Drug: morphine 4 mg {Note: RASS 0.} Route: IVP; Site: right forearm; lp1 21:25 Follow up: Response: Medication administered at discharge. lp1 Intake: 20:10 IV: 100ml; Total: 100ml. lp1 Outcome: 20:13 ER care complete, transfer ordered by . cp 20:49 Condition: stable lp1 20:49 Instructed on the need for transfer. 21:24 Transferred by ground EMS to [facility], Transfer form completed. X-rays sent lp1 w/ patient. 21:24 Patient left the ED. mw2 Signatures: Dispatcher [employer] EDHI Ezequiel Rika Haily Aparicio RN RN Alisha Shultz RN RN lp1 Eliazar Coleman PA PA cp Baxter, Heather RN RN Tacos Tapia mw2 Nia Jurado Lynsay RN RN ll1 Corrections: (The following items were deleted from the chart) 18:55 18:54 Injury Description: Bite sustained to right hand caused by a dog, is multiple hb puncture wounds to right hand and fingers, lacerations to both sides of hand hb 06/13 02:53 03 21:20 Reassessment: Patient reports pain to left hand returning; Verbal order for lp1 Morphine 4mg IV now lp1
--- NOTE | 2020-06-12 20:14 | EDPHYS ---
Physician Documentation [facility] Name: Mao Ardon Age: 60 yrs Sex: Male : 1960 Arrival Date: 06/12/2020 Time: 18:22 Bed 5 Private MD: ED Physician Mariano Urbina HPI: 06/12 19:00 This 60 yrs old Male presents to ER via Ambulatory with complaints of Dog cp Bite. 19:00 The patient was bitten on the right hand and left hand, by a dog, while trying to stop cp animals from fighting, at home. Onset: The symptoms/episode began/occurred just prior to arrival. Secondary to the bite the patient reports multiple lacerations, that are deep, multiple puncture wounds, that are deep. Associated signs and symptoms: Pertinent positives: numbness of left thumb. Severity of symptoms: in the emergency department the symptoms are unchanged, despite home interventions. Historical: - Allergies: 18:32 Codeine; ll1 - PMHx: 18:32 Hernia; ll1 - PSHx: 18:32 foot surgery; left thumb surgery; Hernia repair; ll1 - Immunization history:: Last tetanus immunization: up to date Flu vaccine is not up to date. - Social history:: Smoking status: Patient reports the use of cigarette tobacco products, smokes one pack cigarettes per day. ROS: 19:05 Skin: Positive for multiple dog bites to left hand and right hand. cp 19:05 All other systems are negative. cp Exam: 19:10 Constitutional: The patient appears in no acute distress, alert, awake, non-toxic, well cp developed, well nourished, uncomfortable. 19:10 Head/Face: Normocephalic, atraumatic. cp 19:10 Chest/axilla: Inspection: normal. 19:10 Cardiovascular: Rate: normal. 19:10 Respiratory: the patient does not display signs of respiratory distress, Respirations: normal, no use of accessory muscles, no retractions, labored breathing, is not present. 19:10 Abdomen/GI: Inspection: abdomen appears normal. 19:10 Musculoskeletal/extremity: Extremities: grossly normal except: noted in the web space of proximal thumb kevin and dorsum side: laceration, pain, swelling, tenderness, multiple puncture type wounds noted proximal phalanx left thumb, ROM: full active range of motion, in the left thumb, Perfusion: the extremity is normally perfused throughout, the left thumb decreased sensation, reports feeling of pressure when testing 2 point discrimination Vital Signs: 18:32 BP 146 / 86; Pulse 95; Resp 18; Temp 97.4; Pulse Ox 96% on R/A; Weight 136.08 kg; ll1 Height 6 ft. 0 in. (182.88 cm); Pain 6/10; 20:15 BP 122 / 82; Pulse 80; Resp 20; Temp 98.4(O); Pulse Ox 94% on R/A; Pain 6/10; lp1 18:32 Body Mass Index 40.69 (136.08 kg, 182.88 cm) ll1 MDM: 18:40 Patient medically screened. 19:00 Differential diagnosis: superficial laceration, tendon injury, vascular injury, rabies, cp open fracture. 20:10 Physician consultation: was contacted at 20:00, regarding regarding transfer, to [facility]. patient's condition, DR Maddox will be accepting physician. 21:10 Data reviewed: vital signs, nurses notes, radiologic studies, plain films, I have cp discussed the patient's presentation/case with the attending Emergency Department Physician;. 21:10 Test interpretation: by ED physician or midlevel provider: plain radiologic studies, cp xrays of left hand show fracture of proximal phalanx left thumb. 06/12 18:34 Order name: XRAY Hand LEFT 3 View; Complete Time: 21:05 06/12 21:05 Interpretation: Report reviewed. 06/12 19:46 Order name: XRAY Hand RIGHT 3 View; Complete Time: 21:05 06/12 18:34 Order name: IV; Complete Time: 19:05 06/12 18:39 Order name: Wound Care; Complete Time: 20:50 06/12 18:39 Order name: Dressing - Wound; Complete Time: 20:31 06/12 18:39 Order name: Gloves, Sterile; Complete Time: 20:31 06/12 18:39 Order name: Setup Suture Tray; Complete Time: 20:31 cp Administered Medications: 19:04 Drug: Zosyn 3.375 grams Route: IVPB; Infused Over: 60 mins; Site: right forearm; 20:10 Follow up: IV Status: Completed infusion; IV Intake: 100ml lp1 19:04 Drug: morphine 4 mg Route: IVP; Site: right forearm; iw 19:25 Follow up: Response: Pain is decreased lp1 19:04 Drug: Zofran (Ondansetron) 4 mg Route: IVP; Site: right forearm; iw 19:25 Follow up: Response: No adverse reaction lp1 19:05 Not Given (Pt had vaccine 1 year ago, refused): Tetanus-Diphtheria Toxoid Adult 0.5 ml hb IM once 20:36 Not Given (Not sutures done): Marcaine (bupivacaine) (0.5 %) 10 ml 10 ml Infiltration lp1 once 20:37 Not Given (No sutures performed): Lidocaine (1 %) 10 ml 20 ml Infiltration once; to 1 bedside 21:20 Drug: morphine 4 mg {Note: RASS 0.} Route: IVP; Site: right forearm; lp1 21:25 Follow up: Response: Medication administered at discharge. lp1 Disposition: 20:30 Chart complete. cp 06/13 07:06 Co-signature as Attending Physician, Mariano Urbina MD. rn Disposition: 06/12/20 20:13 Transfer ordered to [place]. Diagnosis are Nondisplaced fracture of proximal phalanx of left thumb - open, Bitten by dog, Laceration without foreign body of right thumb without damage to nail - from dog bite. - Reason for transfer: Higher level of care. - Accepting physician is DR Maddox. - Condition is Stable. - Problem is new. - Symptoms have improved. Signatures: Dispatcher [employer] Haily Barreto RN RN iw Nieto, Roman, MD MD rn Pena, Laura, RN RN lp1 Eliazar Coleman PA PA cp Tacos Tapia mw2 Chantal Kaiser RN RN ll1 Genesis Rothman RN Corrections: (The following items were deleted from the chart) 06/12 20:43 20:13 06/12/2020 20:13 Transfer ordered to [place]. Diagnosis is cp Nondisplaced fracture of proximal phalanx of left thumb - open; Bitten by dog. Reason for transfer: Higher level of care. Accepting physician is DR Maddox. Condition is Stable. Problem is new. Symptoms have improved. cp 21:24 20:43 06/12/2020 20:13 Transfer ordered to [place]. Diagnosis is mw2 Nondisplaced fracture of proximal phalanx of left thumb - open; Bitten by dog; Laceration without foreign body of right thumb without damage to nail - from dog bite. Reason for transfer: Higher level of care. Accepting physician is DR Maddox. Condition is Stable. Problem is new. Symptoms have improved. cp
--- NOTE | 2020-06-12 20:56 | RAD REPORT ---
EXAM DESCRIPTION: RAD - Hand Right 3 View - 06/12/2020 8:35 pm CLINICAL HISTORY: Right hand pain status post injury FINDINGS: No fracture or dislocation is seen. A radiopaque foreign body is not seen
[2020-06-13 03:11] VITALS: BP 122/82; TEMP 98.4; O2SAT 94
== END 2020-06-12 21:24 | disposition short-term general hospital (02) ==
LOC: ER 18:22
DX: S62.515B Nondisplaced fracture of proximal phalanx of left thumb, initial encounter for open fracture (principal); W54.0XXA Bitten by dog, initial encounter; Y93.89 Activity, other specified; Y92.009 Unspecified place in unspecified non-institutional (private) residence as the place of occurrence of the external cause; F17.210 Nicotine dependence, cigarettes, uncomplicated; Z23 Encounter for immunization; Z88.5 Allergy status to narcotic agent
CPT/HCPCS: 96365; 96375; 99285; J2405; J2543